=== PATIENT | male | born 1985 | race African-American/Black ===

== ENCOUNTER 2016-11-07 11:02 | Inpatient (IN) | payer MEDICAID ==
[~2016-11-07] VITALS: Ht 180.3 cm; Wt 68.0 kg
[2016-11-07 11:02] VITALS: BP 112/79; PULSE 109; RESP 16; TEMP 99.3; O2SAT 99
[2016-11-07] MEDS ORDERED: MORPHINE SULFATE 10 MG/ML VIAL IM ONE (12:30)
[2016-11-07 12:52] LABS: CALCIUM 10.3 mg/dL (8.4-11.0); CREATININE 0.87 mg/dL (0.55-1.30); POTASSIUM 4.2 mmol/L (3.5-5.1)
[2016-11-07 12:57] LABS: ALBUMIN 3.3 g/dL (3.4-4.8); TOTAL PROTEIN, SERUM 8.8 g/dL (6.4-8.3)
[2016-11-07 13:09] LABS: BASOPHILS % (AUTO) 0.1 % (0.0-2.0); EOSINOPHILS % (AUTO) 0.1 % (0.0-4.0); HEMOGLOBIN 13.1 g/dL (14.0-18.0); LYMPHOCYTES # (AUTO) 1.3 K/uL (1.0-5.5); LYMPHOCYTES % (AUTO) 5.7 % (20.5-51.5); MEAN CORPUSCULAR HEMOGLOBIN 30 pg (27-31); MEAN CORPUSCULAR HGB CONC 34 % (32-36); MEAN CORPUSCULAR VOLUME 89 fL (79.0-98.0); MONOCYTES # (AUTO) 1.6 K/uL (0.0-1.0); MONOCYTES % (AUTO) 7.1 % (1.7-9.3); NEUTROPHILS # (AUTO) 19.9 K/uL (1.8-7.7); PLATELET COUNT (AUTO) 199 K/uL (130-430); RED BLOOD CELL COUNT(AUTO) 4.39 MIL/uL (4.2-6.2); RED CELL DISTRIBUTION WIDTH 13.3 % (9.0-15.0); WHITE BLOOD COUNT (AUTO) 22.8 K/uL (4.8-10.8)
[2016-11-07 14:08] LABS: BILIRUBIN,URINE 1+ (NEGATIVE); CLARITY/URINE CLEAR (CLEAR); COLOR,URINE YELLOW (YELLOW); GLUCOSE,URINE NEGATIVE (NEGATIVE); KETONES,URINE TRACE (NEGATIVE); LEUKOCYTE ESTERASE ,URINE NEGATIVE (NEGATIVE); NITRITE, URINE NEGATIVE (NEGATIVE); PROTEIN URINE 2+ (NEGATIVE)
[2016-11-07 14:10] LABS: BLOOD, URINE TRACE (NEGATIVE)
[2016-11-07 14:11] LABS: UROBILINOGEN,URINE >=8 (0.2-1.0)
[2016-11-07] MEDS ORDERED: NS 1000 ML BAG IV ONE (14:30)
[2016-11-07 15:07] LABS: BACTERIA,URINE FEW /HPF (None Seen); RBC,URINE 0-3 /HPF (0-3)
[2016-11-07 15:08] LABS: MUCUS,URINE 1+ /LPF (None Seen)
[2016-11-07] MEDS ORDERED: IOHEXOL 350 mgI/mL, 150 ML INFUS..BTL IV ONE (15:23)
[2016-11-07] MEDS ORDERED: NACL 0.9% 1,000 ML IV ONE (16:15)
[2016-11-07] MEDS ORDERED: VANCOMYCIN HCL 1,000 MG in NS 250 ML IV ONE (17:00)
[2016-11-07 17:33] VITALS: BP 120/72; PULSE 74; RESP 18; TEMP 98.6; O2SAT 97
[2016-11-07] MEDS ORDERED: ACETAMINOPHEN 325 MG TABLET PO PRN (18:45)
[2016-11-07] MEDS ORDERED: IPRATROPIUM/ALBUTEROL SULFATE 3 ML AMPUL.NEB INH PRN (18:45)
[2016-11-07] MEDS ORDERED: HYDROcodone/ACETAMIN 5-325 MG TAB (NORCO/ VICODIN) PO PRN (19:00)
[2016-11-07] MEDS ORDERED: HYDROcodone/ACETAMIN 10-325 MG TAB PO PRN (19:00)
[2016-11-07] MEDS ORDERED: ONDANSETRON HCL 4 MG/2 ML VIAL IVP PRN (19:00)
[2016-11-07 20:00] VITALS: BP_SYST 122; BP_SYST 125; BP_DIAS 69; BP_DIAS 72; PULSE 82; PULSE 84; RESP 16; TEMP 99.1; TEMP 99.2; O2SAT 97
[2016-11-07] MEDS: IPRATROPIUM/ALBUTEROL SULFATE 3 ML AMPUL.NEB INH SCH ×2 (20:20→23:18)
[2016-11-07 21:29] VITALS: BP 120/72; PULSE 72
[2016-11-07] MEDS: TEMAZEPAM 15 MG CAPSULE PO SCH (22:13)
[2016-11-07] MEDS: AZITHROMYCIN 500 MG in NS 250 ML IV SCH (22:14)
[2016-11-08] MEDS: PIPERACILLIN/TAZO 4.5GM/DEX-IS 100 ML IV SCH ×4 (00:01→23:40)
[2016-11-08 01:22] VITALS: BP 124/76; PULSE 98; RESP 18; TEMP 98.8; O2SAT 96
[2016-11-08] MEDS: IPRATROPIUM/ALBUTEROL SULFATE 3 ML AMPUL.NEB INH SCH ×4 (03:35→16:20)
[2016-11-08 04:00] VITALS: BP 112/73; PULSE 74; RESP 18; TEMP 97.5; O2SAT 100
[2016-11-08 08:00] VITALS: BP 120/72; PULSE 78; RESP 14; TEMP 98.3; O2SAT 78
[2016-11-08] MEDS ORDERED: VANCOMYCIN HCL 1 GM/NS PREMIX 250 ML IV ONE (12:00)
[2016-11-08 12:49] VITALS: BP 132/77; PULSE 79; RESP 18; TEMP 97.9; O2SAT 99
[2016-11-08 13:17] LABS: BASOPHILS % (AUTO) 0.1 % (0.0-2.0); EOSINOPHILS # (AUTO) 0.1 K/uL (0.0-0.4); EOSINOPHILS % (AUTO) 1.1 % (0.0-4.0); HEMATOCRIT 34.3 % (36-54); HEMOGLOBIN 11.6 g/dL (14.0-18.0); LYMPHOCYTES # (AUTO) 1.2 K/uL (1.0-5.5); LYMPHOCYTES % (AUTO) 9.7 % (20.5-51.5); MEAN CORPUSCULAR HEMOGLOBIN 30 pg (27-31); MEAN CORPUSCULAR HGB CONC 34 % (32-36); MEAN CORPUSCULAR VOLUME 90 fL (79.0-98.0); MONOCYTES # (AUTO) 0.8 K/uL (0.0-1.0); MONOCYTES % (AUTO) 6.3 % (1.7-9.3); NEUTROPHILS # (AUTO) 9.9 K/uL (1.8-7.7); NEUTROPHILS % (AUTO) 82.8 % (40.0-70.0); PLATELET COUNT (AUTO) 214 K/uL (130-430); RED BLOOD CELL COUNT(AUTO) 3.82 MIL/uL (4.2-6.2); RED CELL DISTRIBUTION WIDTH 12.8 % (9.0-15.0)
[2016-11-08 14:04] LABS: CALCIUM 9.6 mg/dL (8.4-11.0); POTASSIUM 3.7 mmol/L (3.5-5.1)
[2016-11-08 14:05] LABS: CREATININE 0.82 mg/dL (0.55-1.30)
[2016-11-08 16:27] VITALS: BP 129/72; PULSE 82; RESP 18; TEMP 98.1; O2SAT 99
[2016-11-08] MEDS: AZITHROMYCIN 500 MG in NS 250 ML IV SCH (21:19)
[2016-11-08] MEDS: TEMAZEPAM 15 MG CAPSULE PO SCH (21:19)
[2016-11-08] MEDS: LACTOBACILLUS RHAMNOSUS GG 1 CAP CAPSULE PO SCH (21:19)
[2016-11-09 00:08] VITALS: BP 127/76; PULSE 86; RESP 18; TEMP 98.4; O2SAT 99
[2016-11-09] MEDS: IPRATROPIUM/ALBUTEROL SULFATE 3 ML AMPUL.NEB INH SCH ×4 (03:00→12:29)
[2016-11-09 05:14] VITALS: BP 132/86; PULSE 88; RESP 18; TEMP 98.9; O2SAT 98
[2016-11-09] MEDS: PIPERACILLIN/TAZO 4.5GM/DEX-IS 100 ML IV SCH ×2 (06:05→15:01)
[2016-11-09 07:12] LABS: CALCIUM 9.8 mg/dL (8.4-11.0); CREATININE 0.81 mg/dL (0.55-1.30); POTASSIUM 3.9 mmol/L (3.5-5.1)
[2016-11-09 07:16] LABS: BASOPHILS % (AUTO) 0.4 % (0.0-2.0); EOSINOPHILS # (AUTO) 0.3 K/uL (0.0-0.4); EOSINOPHILS % (AUTO) 2.5 % (0.0-4.0); HEMATOCRIT 34.7 % (36-54); HEMOGLOBIN 11.6 g/dL (14.0-18.0); LYMPHOCYTES # (AUTO) 1.5 K/uL (1.0-5.5); LYMPHOCYTES % (AUTO) 13.7 % (20.5-51.5); MEAN CORPUSCULAR HEMOGLOBIN 31 pg (27-31); MEAN CORPUSCULAR HGB CONC 33 % (32-36); MEAN CORPUSCULAR VOLUME 91 fL (79.0-98.0); MONOCYTES # (AUTO) 1.1 K/uL (0.0-1.0); MONOCYTES % (AUTO) 9.8 % (1.7-9.3); NEUTROPHILS # (AUTO) 8.2 K/uL (1.8-7.7); NEUTROPHILS % (AUTO) 73.6 % (40.0-70.0); PLATELET COUNT (AUTO) 259 K/uL (130-430); RED CELL DISTRIBUTION WIDTH 13.1 % (9.0-15.0); WHITE BLOOD COUNT (AUTO) 11.1 K/uL (4.8-10.8)
[2016-11-09 08:00] VITALS: BP 124/70; PULSE 82; RESP 14; TEMP 98.2; O2SAT 100
[2016-11-09] MEDS: LACTOBACILLUS RHAMNOSUS GG 1 CAP CAPSULE PO SCH (08:12)
[2016-11-09 11:59] VITALS: Ht 180.3 cm; Wt 68.0 kg
[2016-11-09 12:00] VITALS: BP 122/89; PULSE 74; RESP 21; TEMP 98.5; O2SAT 100
[2016-11-09 15:24] VITALS: BP 114/70; PULSE 75; RESP 18; TEMP 98; O2SAT 99
[2016-11-09 16:00] VITALS: BP 114/70; PULSE 75; RESP 21; TEMP 98; O2SAT 99
== END 2016-11-09 16:10 | disposition home or self-care (01) | DRG 720 ==
LOC: SED 11:02 → SMU 17:00
PROVIDERS: ADMIT Internal Medicine; ATTEND Internal Medicine
DX: A41.9 Sepsis, unspecified organism (principal); J18.9 Pneumonia, unspecified organism; E44.1 Mild protein-calorie malnutrition; E87.1 Hypo-osmolality and hyponatremia; F17.200 Nicotine dependence, unspecified, uncomplicated; D64.9 Anemia, unspecified; F12.10 Cannabis abuse, uncomplicated; F17.210 Nicotine dependence, cigarettes, uncomplicated
CPT/HCPCS: 36415; 71010; 71275; 80048; 80053; 81000-TC; 83605; 84484; 85025; 85379; 86738; 87040-TC; 87070-TC; 87081; 87086; 87205-TC; 93005; 94640; 96360; 96361; 96372; 99285; J0456; J1956; J2270; J2543; J3370; J7030; J7050; Q9967

== ENCOUNTER 2020-03-14 10:14 | Emergency (ER) | payer MEDICAID ==
[~2020-03-14] VITALS: Ht 182.9 cm; Wt 83.9 kg
[2020-03-14 10:54] VITALS: BP_SYST 116
[2020-03-14 11:38] VITALS: BP_SYST 116
== END 2020-03-14 11:38 | disposition home or self-care (01) ==
LOC: SED 10:14
DX: I10 Essential (primary) hypertension (principal)
CPT/HCPCS: 99281